=== PATIENT | female | born 1990 | race Caucasian/White ===

== ENCOUNTER 2017-09-25 03:59 | Emergency (ER) | payer OTHER ==
[~2017-09-25] VITALS: Ht 165.1 cm; Wt 58.2 kg
[2017-09-25 04:02] VITALS: BP 114/73; TEMP 98.1
[2017-09-25 04:16] LABS: COLLECTION METHOD CLEAN CATCH
[2017-09-25 04:21] LABS: PH 7 (5-8); SQUAMOUS EPITHELIAL 0-2 /hpf; URINE APPEARANCE Clear; URINE BACTERIA Rare /hpf; URINE BILIRUBIN Negative (NEGATIVE); URINE BLOOD 3+ (NEGATIVE); URINE COLOR Colorless; URINE GLUCOSE Negative (NEGATIVE); URINE KETONE Negative (NEGATIVE); URINE LEUKOCYTE ESTERASE 2+ (NEGATIVE); URINE NITRATE Negative (NEGATIVE); URINE PROTEIN(semi-quant) Negative (NEGATIVE); URINE RBC 0-2 /hpf; URINE UROBILINOGEN Negative (NEGATIVE)
[2017-09-25] MEDS ORDERED: PYRIDIUM200 M1 PO (04:47)
[2017-09-25] MEDS ORDERED: MACROBID 1100 MG/CAP PO (04:47)
[2017-09-25 05:01] VITALS: PULSE 72
== END 2017-09-25 04:59 | disposition home or self-care (01) ==
LOC: COL.ER 03:59
PROVIDERS: Emergency Medicine
DX: N39.0 Urinary tract infection, site not specified (principal); Z87.440 Personal history of urinary (tract) infections